=== PATIENT | male | born 1980 | race American Indian/Alaskan Native ===

== ENCOUNTER 2016-06-30 05:30 | Emergency (ER) | payer MEDICAID ==
[~2016-06-30] VITALS: Ht 188 cm; Wt 135.4 kg
[~2016-06-30 05:30] MED LIST: CARV12.52 PO; ENAL10TA PO; FURO20TA3 PO; HYDR-3138 PO; POTA10TA90 PO; WARF2.5T73 PO
[2016-06-30 05:31] VITALS: BP 151/93
== END 2016-06-30 06:43 | disposition home or self-care (01) ==
LOC: ED 06:35
DX: K02.9 Dental caries, unspecified (principal); I10 Essential (primary) hypertension
CPT/HCPCS: 99283

== ENCOUNTER 2016-11-22 05:43 | Emergency (ER) | payer MEDICAID ==
[~2016-11-22] VITALS: Ht 182.9 cm; Wt 136.2 kg
[~2016-11-22 05:43] MED LIST changes: -HYDR-3138 PO; +HYDR-3237 PO; +POTA10TA6 PO; -POTA10TA90 PO
[2016-11-22 05:45] VITALS: BP 144/101
== END 2016-11-22 06:40 | disposition home or self-care (01) ==
LOC: ED 06:30
DX: J00 Acute nasopharyngitis [common cold] (principal); I10 Essential (primary) hypertension
CPT/HCPCS: 71020; 99284

== ENCOUNTER → 2017-02-15 | Outpatient (CLI) | payer MEDICAID | END | disposition home or self-care (01) | LOC: CVU 11:38 | PROVIDERS: ATTEND Internal Medicine Cardiovascular Disease | DX: I42.8 Other cardiomyopathies (principal); I10 Essential (primary) hypertension; E66.9 Obesity, unspecified; Z79.01 Long term (current) use of anticoagulants | CPT/HCPCS: 93306 ==

== ENCOUNTER → 2017-08-23 | Outpatient (CLI) | payer MEDICAID | END | disposition home or self-care (01) | LOC: CVU 15:57 | PROVIDERS: ATTEND Internal Medicine Cardiovascular Disease | DX: I10 Essential (primary) hypertension (principal); I42.8 Other cardiomyopathies | CPT/HCPCS: C8929 ==

== ENCOUNTER → 2018-01-07 | Outpatient (CLI) | payer MEDICAID | END | disposition home or self-care (01) | LOC: CVU 13:24 | PROVIDERS: ATTEND Internal Medicine Cardiovascular Disease | DX: I11.0 Hypertensive heart disease with heart failure (principal); I50.42 Chronic combined systolic (congestive) and diastolic (congestive) heart failure; I42.9 Cardiomyopathy, unspecified | CPT/HCPCS: 93306 ==

== ENCOUNTER → 2019-08-19 | Outpatient (CLI) | payer MEDICAID, OTHER ==
[~2019-08-19] MED LIST changes: +WARF2.5T32 PO; -WARF2.5T73 PO
== END | disposition home or self-care (01) ==
LOC: CVU 08:32
PROVIDERS: ATTEND Internal Medicine Cardiovascular Disease
DX: I51.7 Cardiomegaly (principal); I42.8 Other cardiomyopathies; I10 Essential (primary) hypertension
CPT/HCPCS: 93306; 93356